=== PATIENT | male | born 1975 | race Caucasian/White ===

== ENCOUNTER 2023-12-19 08:44 | Day surgery (SDC) | payer OTHER ==
[2023-12-19] MEDS: LACTATED RINGERS 1,000 ML IV ONE (09:00)
--- NOTE | 2023-12-19 09:43 | HISTORY & PHYSICAL EXAMINATION ---
PMH/PSH - Past Medical History Cardiovascular: positive: None Respiratory: positive: None Endocrine/Autoimmune: positive: None GI: positive: None : positive: None HEENT: positive: None Psych: positive: None Musculoskeletal: positive: None Derm: positive: None MRSA Hx?: No Impression/Plan - Problem List Problem List: Pre-op H&P I am asked to see Checo for a screening colonoscopy examination. GI symptoms: None Family history of colon cancer/polyps: Father ([place]) Personal history of colon polyps: N/A Last colonoscopy examination: N/A Anticoagulant use: None Meds: None Allergies: None PMH: No major medical problems PSH: [place] teeth extraction, Vasectomy SH: Cig: No ETOH: Min The Past Family, Social and Personal History has been reviewed with the patient. PAULINO Denies fevers, chills, night sweats, shortness of breath, chest pain, change in the color of skin or urine, diarrhea, constipation, hematemesis, hematochezia, headache, visual changes, muscle aches. PE VSS, Afeb HEENT: Pupils equal, round and reactive to light, sclera anicteric, normal hearing, oral mucous membranes moist and without lesions NECK: Supple without lymphadenopathy, thyromegaly or carotid bruits LUNGS: Clear to auscultation without wheezing HEART: NSR without murmurs CHEST: Equal and symmetric expansion, no rib pain ABD: Soft, nontender, no hepatosplenomegaly, no hernias GROIN: No hernias or lymphadenopathy EXTREMITIES: Normal neuro and muscular exam SKIN: Anicteric Radiologic Studies N/A Assessment: Request for a screening colonoscopy examination. Plan: Screening colonoscopy under sedation through the Day Surgery admission protocol at [facility]. Consent: Checo has been counseled for the procedure, it's indications, risks, benefits and expected outcome as well as alternative therapies. We specifically discussed risks associated with anesthesia and insertion of the endoscope into the large intestine which includes bleeding and injury to the colon which may require surgical intervention. Checo understands, agrees, and consents to the proposed operative strategy and requests that we proceed with the procedure as outlined in our discussion. Lj Perez MD, [facility] General Surgery Service
[2023-12-19] MEDS ORDERED: LIDOCAINE-MPF 2% 5 ML VIAL ONE (09:50)
[2023-12-19] MEDS ORDERED: PROPOFOL 500 MG/50 ML 500 MG/50 ML VIAL ONE (09:50)
--- NOTE | 2023-12-19 09:58 | ANESTHESIA ---
Pre-Anesthesia VS, & Labs - Diagnosis screening - Procedure colonoscopy Height: 5 ft 10 in Weight (kg): 81 kg Body Mass Index: 25.6 BMI Classification: Overweight - NPO Other (prep ad directed) Anes History & Medical History - Anesthetic History Anesthesia Complications: reports: No previous complications - Medical History Cardiovascular: reports: None Pulmonary: reports: None Gastrointestinal: reports: None Urinary: reports: None Musculoskeletal: reports: None Endocrine/Autoimmune: reports: None Skin: reports: None Exam General: Alert, Oriented x3 Dental: WNL Mouth Opening: Greater than 4 Fingerbreadths Neck Mobility: Normal Mallampati classification: I Thyromental Distance: greater than 6 cm Respiratory: Lungs clear Cardiovascular: Regular rate Plan Anesthesia Type: Total IV Consent for Procedure(s) Verified and Reviewed: Yes Code Status: Attempt Resuscitation ASA classification: 1-Healthy patient Is this case an emergency?: No
[2023-12-19] MEDS: LACTATED RINGERS 600 ML IV ONE ×2 (11:03→11:51)
--- NOTE | 2023-12-19 11:14 | ANESTHESIA POST OP EVALUATION ---
Anesthesia Post Eval - Post Anesthesia Eval CV Function Including HR & BP: Stable Pain Control: Satisfactory Nausea & Vomiting: Negative Mental Status: Baseline Respiratory Status: Airway Patent Hydration Status: Satisfactory Anesthesia Complications: None
[2023-12-19 11:28] VITALS: BP 97/68; O2SAT 100
== END 2023-12-19 08:45 | disposition home or self-care (01) ==
LOC: SDS 08:44
PROVIDERS: ATTEND Surgery
PROC: 0DBP8ZZ Excision of Rectum, Via Natural or Artificial Opening Endoscopic (ICD-10-PCS; principal; 2023-12-19 10:35)
DX: Z12.11 Encounter for screening for malignant neoplasm of colon (principal); K62.1 Rectal polyp; Z80.0 Family history of malignant neoplasm of digestive organs
CPT/HCPCS: 45380; J7120